=== PATIENT | female | born 1995 | race Caucasian/White ===

== ENCOUNTER 2024-08-07 17:21 | Outpatient (CLI) | payer OTHER, SELFPAY | END 2024-08-07 17:22 | disposition home or self-care (01) | LOC: NFLDREF 08-12 00:42 | PROVIDERS: PCP Registered Nurse; Referring Provider Registered Nurse; Visit Provider Nurse Practitioner Family | DX: N39.0 Urinary tract infection, site not specified (principal); N89.8 Other specified noninflammatory disorders of vagina | CPT/HCPCS: 87086 ==